=== PATIENT | female | born 1980 | race Caucasian/White ===

== ENCOUNTER 2021-08-12 12:49 | Outpatient (CLI) | payer OTHER, SELFPAY ==
--- NOTE | 2021-08-12 12:56 | ECG_ITS ---
Measurements Intervals [place] Rate: 64 P: 55 [place]: 132 QRS: 21 QRSD: 85 T: 43 QT: 415 QTc: 430 Interpretive Statements SINUS RHYTHM DELAYED PRECORDIAL R/S TRANSITION BASELINE ARTIFACT- I, II, III, AVR, AVL, AVF BORDERLINE ECG Electronically Signed On 08-12-2021 13:07:09 [employer] by Royce Arellano D.O.
== END 2021-08-12 12:50 | disposition home or self-care (01) ==
LOC: ANHSURGERY 12:55
PROVIDERS: PCP Physician Assistant; Visit Provider Obstetrics & Gynecology
DX: N87.9 Dysplasia of cervix uteri, unspecified (principal); I10 Essential (primary) hypertension; Z01.818 Encounter for other preprocedural examination; R94.31 Abnormal electrocardiogram [ECG] [EKG]
CPT/HCPCS: 36415; 86850; 86900; 86901; 93005

== ENCOUNTER 2021-08-13 00:39 | Day surgery (SDC) | payer OTHER, SELFPAY ==
[2021-08-05 14:26] VITALS: BMI 33.2
--- NOTE | 2021-08-05 14:40 | PC.NURSE ---
Report to the Outpatient Waiting Room, entrance under the green pavilion located off [facility], at time 6:00 on date 08/13/21. OR Time: 7:30. - You and your visitor will be asked a series of questions to screen for COVID 19 for your protection. - A mask is required within the hospital. - Only one visitor is allowed at this time. Patient visitors will be guided where to wait when not with patient. Preoperative COVID Testing Requirements: No COVID Test needed if: (proof is required; if not received patient will have Rapid Test prior to entry) - Patient has received COVID Vaccine at least 14 days prior to procedure date or - Patient has positive COVID test result within last 90 days of surgery date. COVID Test needed if above criteria is not met If not COVID vaccinated a COVID test must be conducted within 72 hours of surgery and patient is asked to isolate self from time of testing until procedure. You will go to the [email or web address] for your COVID testing. The [email or web address] [facility] site is located at the corner of [address] [facility]. You will only be called if COVID results are positive and your surgeon may reschedule your elective surgery date. Patients may have clear liquids (water, carbonated beverages, clear teas, apple juice) until 3 hours prior to surgery with a maximum of 20 ounces. - No food from midnight until time of surgery - Infants may have breast milk until 4 hours before surgery, infant formula 6 hours prior to surgery. - Children will be allowed to drink immediately following surgery. If applicable, please bring a bottle or sippy cup to assist with drinking. Juice, water, soda, and popsicles are readily available. For infants on formula, please bring formula the day of surgery. Pacifiers are allowed. Take the following medications with a SIP of water the morning of surgery: WELLBUTRIN Medications to discontinue per physician: N/A Date to take last dose: N/A Please no make-up, nail tajik, hairspray, perfume, deodorant, or body powder the day of surgery. No jewelry (including any body piercings) or valuables the day of surgery, leave them at home. Please take a shower or bath the night before, or the morning of, surgery with an antibacterial soap. Wear comfortable, loose fitting clothing. Children are encouraged to wear pajamas. - Jewelry must be removed prior to entering the operating room. Rings and piercings that are not removed may be cut off. - The hospital will not accept responsibility for valuables. - Please leave all valuables, including medications, at home the day of surgery. If you are going home after surgery, a licensed newspaper delivery driver must drive you home. - NO public transportation without another adult. - We recommend that an adult stay with you for 24 hours following discharge. - We also recommend that you do not drive, make important decision, drink alcoholic beverages, or take any drugs that were not prescribed by your health care provider for at least 24 hours after your discharge time. For Pediatric surgeries, we recommend two adults accompany the child home (only one inside the building at this time). Follow any additional instructions given to you from your surgeon. Telephone instructions given to JET PHILLIPS and asked if any additional questions and then verbalized understanding. Patient advised to call surgeon office or pre surgery nurse liaison [phone] if any additional questions.
[2021-08-13] VITALS (12 sets, daily range): BP systolic 111–150; BP diastolic 78–108; PULSE 53–79; RESP 11–18; TEMP 36–37.2; O2SAT 97–100
--- NOTE | 2021-08-13 06:31 | WPDHPUPDATE1 ---
History and Physical Update Update Date/Time: 08/13/21 06:31 History and Physical has been reviewed, including an updated exam of the patient. There are NO changes in the patient's condition. Risks, benefits, and alternatives have been discussed and questions answered. Patient agrees to proceed with procedure.
[2021-08-13] MEDS: LACTATED RINGERS 1,000 ML 30 ML IV CONT ×2 (06:35→09:00)
[2021-08-13] MEDS: ACETAMINOPHEN 500 MG TABLET 1000 MG PO (06:37)
[2021-08-13] MEDS: KETOROLAC 15 MG/ML VIAL (*BKC) IV PUSH (06:37)
--- NOTE | 2021-08-13 06:39 | P.PNAN_ITS ---
Anes - Initial Pre Proc Eval Procedure: Operation Date: 08/13/21 07:00 Proposed Procedures p Total Laparoscopic Hysterectomy with Bilateral Salpingectomy - Arden Gray MD Date/Time: 08/13/21 06:39 Surgeon: Arden Gray MD Pre Op Diagnosis: dysplasia of cervix Patient Data Age: 40 Gender: F Height: 1.75 m Weight: 102 kg Allergies Allergy/AdvReac Type Severity Reaction Status Date / Time sulfamethoxazole AdvReac LOW BLOOD Verified 08/13/21 06:25 [From PRESSURE Sulfamethoxazole-Trimethoprim] trimethoprim AdvReac LOW BLOOD Verified 08/13/21 06:25 [From PRESSURE Sulfamethoxazole-Trimethoprim] Home Medications Medication Instructions Recorded Confirmed Type atenolol 25 mg PO HS 08/05/21 08/13/21 History bupropion HCl 300 mg PO DAILY 08/05/21 08/13/21 History Patient hx anesthesia problems: none Family hx anesthesia problems: none Results Review: All pre-operative results and documents have been reviewed as part of the pre-operative evaluation. [facility] Past Medical History Medical History HTN (hypertension) Obesity Smoker Social History Social History Smoking packs per day: 0.25 Smoking cigarettes per day: 5.0 Years smoked: 20 Smoking pack-years: 5.00 Smoking status: Current every day smoker Tobacco type: cigarettes Alcohol intake: current Drinks per week: 12 Substance use: never Substance use type: does not use Living arrangements: with family Spiritual care concerns: No Anes - Eval Final PreProcedure Day of Procedure 08/13/21 06:39 Patient weight: obese Heart: regular rate and rhythm Lungs: clear to auscultation Airway: Mallampati scale class II Neurological: alert and oriented Last oral intake: >/= 8 hours ASA classification: III Emergent: no Anesthetic plan: proceed Anesthesia type and monitoring: general ETT and standard monitoring Results Review: All pre-operative results and documents have been reviewed as part of the pre-operative evaluation. Informed Consent: The patient's anesthetic plan and its attendant risks and benefits were discussed with the patient/family/POA. Questions were solicited and answers provided to the satisfaction of the patient/family/POA.
[2021-08-13] MEDS: ceFAZolin 2 GM/D5W 50 ML 2 GM/50 ML BAG IVPB (06:53)
--- NOTE | 2021-08-13 09:03 | W.PM.PROC2 ---
Procedure Note - Detailed Date of Procedure 08/13/21 Pre-op Diagnosis dysplasia of cervix Post-op Diagnosis same Procedure Performed Total laparoscopic hysterectomy and bilateral salpingectomy. Surgeon Arden Gray MD Anesthesia general Indications Severe menometrorrhagia, possible cervical mass Findings Moderate sized uterus, normal appearing ovaries and normal-appearing tubes. Description of Procedure This patient was taken to the operating room. She was prepped and draped in the dorsal lithotomy position after induction of general anesthesia. The uterine manipulator and Aggie cup were placed. This was done with a speculum and tenaculum. The speculum was placed. The cervix was grasped with a tenaculum. The stay sutures were placed at 3 and 9:00 a.m.. The stay sutures of 0 Vicryl were brought through the appropriately sized Aggie cup. The tip of the ALISE manipulator was placed in the intrauterine cavity. The cup was slid into place around the cervix and into the fornices. It was locked into place. The sutures were then wrapped around the handle and tied under tension. A 5 mm skin incision was made in the left upper quadrant the abdomen. A 5 mm trocar was inserted into the intrauterine cavity under direct visualization of the scope. Pneumoperitoneum was achieved. A left lower quadrant 11 mm incision was made with scalpel. An 11 mm trocar was inserted into the anterior abdominal cavity under direct visualization the scope. A 5 mm infraumbilical incision was made with a scalpel and a 5 mm trocar was inserted the intra-abdominal cavity under direct visualization of the scope. Bilateral ureteral lysis was performed. This was done from the pelvic brim down to the uterine artery. This was done with careful dissection using sharp and blunt dissection. The fallopian tubes were removed bilaterally. The mesosalpinx around the fallopian tubes were cauterized transected with LigaSure cautery. This was done in a bilateral fashion from the ovary to the uterine cornua. The fallopian tube was transected at the uterine cornu and amputated. The tube was taken out the left lower quadrant trocar site. In a stepwise fashion along the lateral aspects of the uterus the round ligament and broad ligaments were cauterized transected down to the level of the uterine arteries. A bladder flap was created in the bladder was moved distally to the end of the cervix and over the Aggie cup. The bilateral uterine arteries were cauterized and transected. Colpotomy was then performed. In a circumferential fashion the vagina was transected using unipolar cautery. The incision was made down on the Aggie cup. The uterus and cervix were taken out through the vagina. A pneumo occluder was placed in the vagina. The vaginal cuff was closed with a 0 V lock suture in a running fashion. The pelvis was irrigated with copious amounts antibiotic irrigation. The ureters were again examined and found to be intact and flowing freely under the uterine arteries into the bladder. The bladder was intact. It was examined directly. The vagina was irrigated with Betadine solution after removal of the Pneumo occluder. The patient was taken to recovery room. She was stable condition. Sponge lap and needle counts were correct x2. Estimated Blood Loss 25 Drains Yes Packing No Pathology yes Complications No immediate complications Condition stable Disposition floor
[2021-08-13] MEDS: fentaNYL CITRATE INJ (*CRX) 100 MCG/2 ML VIAL 25 MCG IV PUSH ×2 (10:12→10:15)
--- NOTE | 2021-08-13 10:25 | OBPPTRN ---
Patient transferred to post room #292 via stretcher. Support person present. Oriented to unit, room, information board, call light within reach.
[2021-08-13] MEDS: DEXTROSE 5%/0.45% SOD CHL 1,000 ML 125 ML IV CONT (11:00)
[2021-08-13] MEDS: KETOROLAC 30 MG/ML VIAL (*BKC) IV PUSH (12:18)
[2021-08-13] MEDS: HYDROcodone/acetaminophen (*CRX) 5-325 MG TABLET 1 TAB PO ×2 (15:37→20:48)
[2021-08-13] MEDS: atenoloL 25 MG TABLET PO (20:47)
[2021-08-13] MEDS: IBUPROFEN 600 MG TABLET PO (20:47)
[2021-08-14 00:08] VITALS: BP 122/80; PULSE 62; RESP 16; TEMP 36.7; O2SAT 99
[2021-08-14 04:30] VITALS: BP 120/79; PULSE 61; RESP 16; TEMP 36.6; O2SAT 100
[2021-08-14 07:25] VITALS: BP 157/104; PULSE 58; RESP 16; TEMP 37.3; O2SAT 100
[2021-08-14 07:30] VITALS: PULSE 58; RESP 16; O2SAT 100
--- NOTE | 2021-08-14 07:30 | PC.NURSE ---
PT introductions made and plan of care discussed per post op wafer cutter surgery, pain management, daily care activities and pending discharge to home. PT and spouse both recipients of instructions and care this shift. PT received instructions per one to one discussion and demonstrations. No barriers to learning identified at this time.
--- NOTE | 2021-08-14 07:40 | PM.GYNPNOP ---
CHECK WRITER - A/P Postoperative Procedures: Procedures Operation Date: 08/13/21 07:00 Actual Procedure Side Surgeon p Total Laparoscopic Hysterectomy with Bilateral Salpingectomy Bilateral Arden Gray MD Postoperative day: 1 Postoperative status: doing well Postoperative plan: see orders Time Spent With Patient Time: Total time spent is greater than 50% in coordination of care (as documented) at patient's floor/unit and/or counseling patient: Time with patient: less than 15 minutes CHECK WRITER- PN:Subj Post-Op Subjective Date/time seen: 08/14/21 07:40 Subjective: patient reports feeling better, patient has no complaints and pain is well controlled Exam Const: General: healthy appearing, comfortable and no acute distress Resp: Auscultation: clear to auscultation bilaterally, no rales, no rhonchi and no wheezes Cardio: Rate: regular rate Heart sounds: no click, no murmurs and no rubs GI: Inspection: non-distended Auscultation: normal bowel sounds Extrem: General: normal to inspection, no pedal edema and no calf tenderness CHECK WRITER - PN: Obj Data Vital Signs Vital Signs: Vital Signs - 24 hr 08/13/21 09:05 08/13/21 09:20 08/13/21 09:35 Temperature 98.9 F Pulse Rate 79 54 L 59 L Respiratory Rate 15 11 L 17 Blood Pressure 116/78 129/95 H 143/99 H Pulse Oximetry 97 100 100 08/13/21 09:50 08/13/21 10:05 08/13/21 10:30 Temperature 97 F L Pulse Rate 54 L 53 L 55 L Respiratory Rate 14 13 16 Blood Pressure 150/108 H 138/101 H 111/79 Pulse Oximetry 99 98 100 08/13/21 12:18 08/13/21 15:30 08/13/21 16:50 Temperature 97.2 F L 98.2 F Pulse Rate 55 L 60 Respiratory Rate 16 18 Blood Pressure 114/79 146/102 H 125/87 Pulse Oximetry 97 98 08/13/21 20:40 08/13/21 20:47 08/14/21 00:08 Temperature 98 F 98.1 F Pulse Rate 61 61 62 Respiratory Rate 16 16 Blood Pressure 122/79 122/80 Pulse Oximetry 100 99 08/14/21 04:30 Temperature 98 F Pulse Rate 61 Respiratory Rate 16 Blood Pressure 120/79 Pulse Oximetry 100 Intake/Output Intake/Output: Intake & Output 08/11/21 08/12/21 08/13/21 08/14/21 23:59 23:59 23:59 23:59 Intake Total 2300 500 Output Total 2970 950 Balance -670 -450 Meds/Results Medications: Active Medications Generic Name Dose Route Start Last Admin Trade Name Freq PRN Reason Stop Dose Admin Hydrocodone Bitart/Acetaminophen 1 tab 08/13/21 10:17 08/13/21 20:48 Hydrocodone/Acetaminophen (*Crx) 5-325 Mg Tablet PO 1 tab Q3H PRN Administration Pain Rated 5 or Less Hydrocodone Bitart/Acetaminophen 1 tab 08/13/21 10:17 Hydrocodone/Acetaminophen (*Crx) 10-325 Mg Tablet PO Q3H PRN Pain Rated 6 or Greater Atenolol 25 mg 08/13/21 21:00 08/13/21 20:47 Atenolol 25 Mg Tablet PO 25 mg HS DOMENIC Administration Bupropion HCl 300 mg 08/14/21 09:00 Bupropion Hcl Xl (24 Hr) 150 Mg Tabcr PO DAILY DOMENIC Ibuprofen 600 mg 08/13/21 10:17 08/13/21 20:47 Ibuprofen 600 Mg Tablet PO 600 mg Q6H PRN Administration Cramping Ketorolac Tromethamine 30 mg 08/13/21 10:17 08/13/21 12:18 Ketorolac 30 Mg/Ml Vial (*Bkc) IV PUSH 08/18/21 10:16 30 mg Q6H PRN Administration Pain Rated 4-6 Naloxone HCl 0.1 mg 08/13/21 10:17 Naloxone Hcl 0.4 Mg/Ml Vial IV PUSH Q2M PRN Respiratory rate less than 10 Ondansetron HCl 4 mg 08/13/21 10:17 Ondansetron Inj 4 Mg/2 Ml Vial IV PUSH Q6H PRN Nausea And Vomiting
[2021-08-14] MEDS: HYDROcodone/acetaminophen (*CRX) 10-325 MG TABLET 1 TAB PO ×2 (07:53→11:00)
[2021-08-14] MEDS: IBUPROFEN 600 MG TABLET PO (07:53)
[2021-08-14 10:00] VITALS: BP 119/82
--- NOTE | 2021-08-14 10:22 | WPDANESPN ---
Anes - Prog Note Post-Op Date/Time: 08/14/21 10:22 Cardiovascular status: normal Respiratory status: normal Airway patency: baseline Mental status: baseline Post-Op hydration status: normal Vital Signs: Last Vital Signs Temp 37.3 C 08/14/21 07:25 Pulse 58 L 08/14/21 07:25 Resp 16 08/14/21 07:25 BP 119/82 08/14/21 10:00 Pulse Ox 100 08/14/21 07:25 Pain Score (VAS): 0 I/O: Intake & Output 08/13/21 08/14/21 08/14/21 23:59 07:59 15:59 Intake Total 600 500 Output Total 1550 950 Balance -950 -450 Post-procedural complaints: none Patient Feedback: Patient satisfied with anesthetic care.
--- NOTE | 2021-08-14 11:00 | PC.NURSE ---
PT received discharge instructions per protocol and verbalized understanding of such care.
--- NOTE | 2021-08-14 11:28 | PC.NURSE ---
PT discharged to home ambulatory accompanied by spouse and taken to waiting car. follow up appts confirmed
[2021-08-14] MEDS: buPROPion HCL XL (24 HR) 150 MG TABCR 300 MG PO (12:31)
[2021-08-14] MEDS: DOCUSATE SODIUM 100 MG CAPSULE (12:31)
== END 2021-08-14 11:28 | disposition home or self-care (01) ==
LOC: ANHSURGERY 06:09 → ANHOB2 10:23
PROVIDERS: PCP Physician Assistant; Visit Provider Obstetrics & Gynecology
PROC: 0UT9FZZ Resection of Uterus, Via Natural or Artificial Opening With Percutaneous Endoscopic Assistance (ICD-10-PCS; CPT 58571; principal; 2021-08-13 07:00)
DX: N87.9 Dysplasia of cervix uteri, unspecified (principal); N80.0 Endometriosis of uterus; N73.6 Female pelvic peritoneal adhesions (postinfective); I10 Essential (primary) hypertension; E66.9 Obesity, unspecified; Z68.34 Body mass index [BMI] 34.0-34.9, adult; F17.210 Nicotine dependence, cigarettes, uncomplicated
CPT/HCPCS: 58571; 36415; 86850; 86900; 86901; 88307; 93005; 99199; A9270; J0690; J1100; J1170; J1885; J2250; J2405; J2704; J2710; J3010; J7030; J7120